=== PATIENT | female | born 1990 ===

== ENCOUNTER 2018-02-22 05:39 | Outpatient (CLI) | payer OTHER ==
[2018-02-22] MEDS ORDERED: PRENATAL TABLE1 EAC1 PO (06:18)
== END 2018-02-22 10:59 | disposition home or self-care (01) ==
LOC: OBS/DEL 05:39
DX: O47.1 False labor at or after 37 completed weeks of gestation (principal); Z34.03 Encounter for supervision of normal first pregnancy, third trimester